=== PATIENT | female | born 1955 | race Caucasian/White ===

== ENCOUNTER → 2020-05-09 16:15 | Outpatient (CLI) | payer BC, SELFPAY ==
--- NOTE | ~2020-05-09 | MM_ITS ---
EXAMINATION: MM screening [facility] BI w vimal HISTORY: Screening mammogram TECHNIQUE: Craniocaudal and mediolateral oblique 3-D tomosynthesis images were obtained and synthetic 2-D images were generated. CAD analysis was submitted and interpreted. COMPARISON: 03/11/2019, 02/07/2018, 02/04/2017 BREAST PARENCHYMAL COMPOSITION: There are scattered areas of fibroglandular density. FINDINGS: There is no evidence of suspicious mass, calcification, or architectural distortion to sugg est malignancy in either breast. There has been no suspicious interval change. IMPRESSION: 1. No mammographic evidence of malignancy. 2. Recommend routine screening mammography in one year. BI-RADS Category 1: Negative Reviewed, dictated and finalized at location A.
== END ==
PROVIDERS: PCP Physician Assistant; Visit Provider Physician Assistant
DX: Z12.31 Encounter for screening mammogram for malignant neoplasm of breast (principal)
CPT/HCPCS: 77063; 77067

== ENCOUNTER → 2021-09-20 15:43 | Outpatient (CLI) | payer BC, SELFPAY ==
--- NOTE | ~2021-09-20 | DEXA_ITS ---
Bone Density Report Name: MCKENNA TRAN Age: 66 Sex: Female Ethnicity: White Date of : 1955 Indication: osteopenia; postmenopausal Referring Provider: JOSE, MARISA Tavarez Study: Bone densitometry was performed. Exam Date: September 20, 2021 Accession number: [id number] Bone Density: Region BMD T-score Z-score Classification AP Spine (L1-L4) 0.787 -2.4 -0.5 Osteopenia Femoral Neck (Left) 0.714 -1.2 0.4 Osteopenia Total Hip (Left) 0.873 -0.6 0.7 Normal Femoral Neck (Right) 0.677 -1.5 0.0 Osteopenia Total Hip (Right) 0.847 -0.8 0.5 Normal Total Hip Mean 0.860 -0.7 0.6 Normal World Health Organization criteria for BMD impression classify patients as: Normal (T-score at or above -1.0), Osteopenia (T-score between -1.0 and -2.5), or Osteoporosis (T-score at or below -2.5). 10-year Fracture Risk(1): Major Osteoporotic Fracture 9.1% Hip Fracture 1.0% Reported Risk Factors: [place] (), Neck BMD=0.677, BMI=28.6 (1) FRAX(R) Version 3.08. Fracture probability calculated for an untreated patient. Fracture probability may be lower if the patient has received treatment. Previous Exams: Region Exam Age BMD T-score BMD Change BMD Change Date g/cm2 vs Baseline vs Previous AP Spine(L1-L4) 09/20/2021 66 0.787 -2.4 -0.160* 0.001 01/03/2016 60 0.786 -2.4 -0.161* -0.022 10/20/2012 57 0.809 -2.2 -0.138* -0.043* 09/18/2010 55 0.851 -1.8 -0.096* 0.000 08/06/2008 53 0.852 -1.8 -0.095* -0.095* 06/18/2005 50 0.947 -0.9 Total Hip(Left) 09/20/2021 66 0.873 -0.6 -0.150* -0.050* 01/03/2016 60 0.922 -0.2 -0.100* 0.019 10/20/2012 57 0.903 -0.3 -0.119* 0.026 09/18/2010 55 0.877 -0.5 -0.145* 0.018 08/06/2008 53 0.859 -0.7 -0.163* -0.163* 06/18/2005 50 1.022 0.7 Total Hip(Right) 09/20/2021 66 0.847 -0.8 -0.139* -0.053* 01/03/2016 60 0.901 -0.3 -0.085* 0.050* 10/20/2012 57 0.851 -0.7 -0.135* 0.014 09/18/2010 55 0.837 -0.9 -0.149* 0.001 08/06/2008 53 0.836 -0.9 -0.150* -0.150* 06/18/2005 50 0.986 0.4 *Denotes significance at 95% confidence level, LSC for AP Spine = 0.022 g/cm2, LSC for Total Hip = 0.027 g/cm2 Clinical Information Provided by Patient: Has used the [facility]
--- NOTE | ~2021-09-20 | MM_ITS ---
EXAMINATION: MM screening [facility] BI w vimal HISTORY: Screening TECHNIQUE: Craniocaudal and mediolateral oblique 3-D tomosynthesis images were obtained and synthetic 2-D images were generated. CAD analysis was submitted and interpreted. COMPARISON: Comparison to multiple prior studies sequentially, with oldest reviewed study dated 01/02. BREAST PARENCHYMAL COMPOSITION: There are scattered areas of fibroglandular density. FINDINGS: There is no evidence of suspicious mass, calcification, or architectural distortion to sugg est malignancy in either breast. There has been no suspicious interval change. IMPRESSION: 1. No mammographic evidence of malignancy. 2. Recommend routine screening mammography in one year. BI-RADS Category 1: Negative Reviewed, dictated and finalized at location A. RIBBER
== END ==
PROVIDERS: PCP Physician Assistant; Visit Provider Physician Assistant
DX: Z12.31 Encounter for screening mammogram for malignant neoplasm of breast (principal); Z78.0 Asymptomatic menopausal state; M85.88 Other specified disorders of bone density and structure, other site; M85.852 Other specified disorders of bone density and structure, left thigh; M85.851 Other specified disorders of bone density and structure, right thigh
CPT/HCPCS: 77063; 77067; 77080

== ENCOUNTER → 2022-11-16 16:44 | Outpatient (CLI) | payer BC, SELFPAY ==
--- NOTE | ~2022-11-16 | MM_ITS ---
EXAMINATION: MM screening [facility] BI w vimal HISTORY: Screening mammogram TECHNIQUE: Craniocaudal and mediolateral oblique 3-D tomosynthesis images were obtained and synthetic 2-D images were generated. CAD analysis was submitted and interpreted. COMPARISON: 09/20/2021, 05/09/2020, 03/11/2019 BREAST PARENCHYMAL COMPOSITION: The breasts are almost entirely fatty. FINDINGS: No suspicious mass, calcification, or architectural distortion are identified in either lluvia ast to suggest malignancy. There has been no suspicious interval change. IMPRESSION: 1. No mammographic evidence of malignancy. 2. Recommend routine screening mammography in one year. BI-RADS Category 1: Negative Reviewed, dictated and finalized at location A.
== END ==
PROVIDERS: PCP Physician Assistant; Visit Provider Physician Assistant
DX: Z12.31 Encounter for screening mammogram for malignant neoplasm of breast (principal)
CPT/HCPCS: 77063; 77067